=== PATIENT | male | born 1950 | race Two or more races ===

== ENCOUNTER → 2017-08-22 06:49 | Outpatient (CLI) | payer OTHER | END | disposition home or self-care (01) | LOC: LAB 06:49 | DX: C61 Malignant neoplasm of prostate (principal); E11.65 Type 2 diabetes mellitus with hyperglycemia; E03.8 Other specified hypothyroidism; N39.0 Urinary tract infection, site not specified; E78.2 Mixed hyperlipidemia ==

== ENCOUNTER → 2017-08-22 06:54 | Outpatient (CLI) | payer OTHER | END | disposition home or self-care (01) | LOC: RAD 06:54 | DX: J45.998 Other asthma (principal) ==

== ENCOUNTER → 2017-08-22 | Outpatient (CLI) | payer OTHER ==
[~2017-08-22] VITALS: Ht 152.4 cm; Wt 70.3 kg
== END | disposition home or self-care (01) ==
LOC: PPH VACUNA 08:05
DX: Z23 Encounter for immunization (principal)

== ENCOUNTER 2017-08-26 07:09 | Outpatient (CLI) | payer OTHER | END 2017-08-26 08:00 | disposition home or self-care (01) | LOC: NUCLEAR 07:09 | DX: I25.10 Atherosclerotic heart disease of native coronary artery without angina pectoris (principal) | CPT/HCPCS: 78452; 93017; A9500 ==

== ENCOUNTER → 2017-10-10 08:01 | Outpatient (CLI) | payer OTHER | END | disposition home or self-care (01) | LOC: LAB 08:01 | DX: N30.00 Acute cystitis without hematuria (principal) ==

== ENCOUNTER 2018-02-10 13:48 | Outpatient (CLI) | payer OTHER | END 2018-02-10 17:00 | disposition home or self-care (01) | LOC: SONOGRAMA 13:48 | DX: M25.511 Pain in right shoulder (principal) ==

== ENCOUNTER 2018-02-10 15:04 | Outpatient (CLI) | payer OTHER | END 2018-02-10 15:17 | disposition home or self-care (01) | LOC: LAB 15:04 | DX: C61 Malignant neoplasm of prostate (principal); E11.9 Type 2 diabetes mellitus without complications; N40.0 Benign prostatic hyperplasia without lower urinary tract symptoms ==

== ENCOUNTER → 2018-07-04 06:24 | Outpatient (CLI) | payer OTHER | END | disposition home or self-care (01) | LOC: LAB 06:24 → EDBD 06:24 | DX: M75.41 Impingement syndrome of right shoulder (principal); I10 Essential (primary) hypertension; C61 Malignant neoplasm of prostate; E11.9 Type 2 diabetes mellitus without complications; D68.8 Other specified coagulation defects ==

== ENCOUNTER 2018-07-20 06:35 | Day surgery (SDC) | payer OTHER | END 2018-07-20 10:30 | disposition home or self-care (01) | LOC: CIR.AMB 06:35 | DX: M75.41 Impingement syndrome of right shoulder (principal) ==

== ENCOUNTER → 2019-02-23 | Outpatient (CLI) | payer OTHER | END | disposition home or self-care (01) | LOC: LAB 08:10 | DX: C61 Malignant neoplasm of prostate (principal); E11.9 Type 2 diabetes mellitus without complications ==

== ENCOUNTER → 2019-09-10 06:40 | Outpatient (CLI) | payer OTHER | END | disposition home or self-care (01) | LOC: LAB 06:40 | DX: C61 Malignant neoplasm of prostate (principal); E11.9 Type 2 diabetes mellitus without complications ==

== ENCOUNTER 2020-02-29 07:11 | Outpatient (CLI) | payer OTHER | END 2020-02-29 10:45 | disposition home or self-care (01) | LOC: LAB 07:11 | PROVIDERS: ATTEND Urology | DX: C61 Malignant neoplasm of prostate (principal); E11.9 Type 2 diabetes mellitus without complications ==

== ENCOUNTER 2020-04-15 08:00 | Outpatient (CLI) | payer OTHER | END 2020-04-15 13:48 | disposition home or self-care (01) | LOC: PPH VACUNA 08:00 | DX: Z23 Encounter for immunization (principal) | CPT/HCPCS: 90688; G0008 ==

== ENCOUNTER → 2020-06-04 10:41 | Outpatient (CLI) | payer OTHER | END | disposition home or self-care (01) | LOC: LAB 10:41 | DX: Z20.828 Contact with and (suspected) exposure to other viral communicable diseases (principal); Z11.59 Encounter for screening for other viral diseases ==

== ENCOUNTER 2020-06-20 07:09 | Outpatient (CLI) | payer OTHER | END 2020-06-20 13:51 | disposition home or self-care (01) | LOC: LAB 07:09 | DX: Z03.818 Encounter for observation for suspected exposure to other biological agents ruled out (principal) ==

== ENCOUNTER 2020-08-07 07:02 | Outpatient (CLI) | payer OTHER | END 2020-08-07 16:18 | disposition home or self-care (01) | LOC: LAB 07:02 | PROVIDERS: ATTEND Urology | DX: E03.8 Other specified hypothyroidism (principal); C61 Malignant neoplasm of prostate; E55.9 Vitamin D deficiency, unspecified; R31.1 Benign essential microscopic hematuria; R73.09 Other abnormal glucose; E78.49 Other hyperlipidemia ==

== ENCOUNTER 2020-08-07 21:27 | Outpatient (CLI) | payer OTHER | END 2020-08-07 23:50 | disposition home or self-care (01) | LOC: PPH VACUNA 21:27 | PROVIDERS: ATTEND Emergency Medicine Pediatric Emergency Medicine | DX: Z23 Encounter for immunization (principal) ==

== ENCOUNTER → 2021-01-16 06:44 | Outpatient (CLI) | payer OTHER | END | disposition home or self-care (01) | LOC: LAB 06:44 | PROVIDERS: ATTEND Urology | DX: C61 Malignant neoplasm of prostate (principal); I11.9 Hypertensive heart disease without heart failure; E11.9 Type 2 diabetes mellitus without complications; U07.1 COVID-19 ==

== ENCOUNTER 2021-03-01 12:34 | Outpatient (CLI) | payer OTHER | END 2021-03-01 18:00 | disposition home or self-care (01) | LOC: LAB 12:34 | DX: Z03.818 Encounter for observation for suspected exposure to other biological agents ruled out (principal) ==

== ENCOUNTER 2021-04-27 08:00 | Outpatient (CLI) | payer OTHER | END 2021-04-27 08:30 | disposition home or self-care (01) | LOC: PPH VACUNA 08:00 | PROVIDERS: ATTEND Emergency Medicine Pediatric Emergency Medicine | DX: Z23 Encounter for immunization (principal) ==

== ENCOUNTER 2021-07-24 07:34 | Outpatient (CLI) | payer OTHER | END 2021-07-24 07:49 | disposition home or self-care (01) | LOC: LAB 07:34 | PROVIDERS: ATTEND Urology | DX: C61 Malignant neoplasm of prostate (principal); R31.1 Benign essential microscopic hematuria; E78.5 Hyperlipidemia, unspecified; E66.9 Obesity, unspecified; E55.9 Vitamin D deficiency, unspecified ==

== ENCOUNTER 2021-08-14 07:16 | Outpatient (CLI) | payer OTHER | END 2021-08-14 07:23 | disposition home or self-care (01) | LOC: MRI 07:16 | PROVIDERS: ATTEND Urology | DX: M25.562 Pain in left knee (principal); S83.252A Bucket-handle tear of lateral meniscus, current injury, left knee, initial encounter | CPT/HCPCS: 73718 ==

== ENCOUNTER 2021-08-14 08:59 | Outpatient (CLI) | payer OTHER | END 2021-08-14 09:10 | disposition home or self-care (01) | LOC: RAD 08:59 | PROVIDERS: ATTEND Radiology Diagnostic Radiology | DX: S82.092A Other fracture of left patella, initial encounter for closed fracture (principal) ==

== ENCOUNTER 2022-01-01 06:53 | Outpatient (CLI) | payer OTHER | END 2022-01-01 12:46 | disposition home or self-care (01) | LOC: LAB 06:53 | PROVIDERS: ATTEND Urology | DX: C61 Malignant neoplasm of prostate (principal); E11.9 Type 2 diabetes mellitus without complications ==

== ENCOUNTER → 2022-03-22 06:40 | Outpatient (CLI) | payer OTHER | END | disposition home or self-care (01) | LOC: LAB 06:40 | PROVIDERS: ATTEND Surgery | DX: Z01.818 Encounter for other preprocedural examination (principal); K40.90 Unilateral inguinal hernia, without obstruction or gangrene, not specified as recurrent; D68.8 Other specified coagulation defects; I10 Essential (primary) hypertension ==

== ENCOUNTER 2022-03-31 06:00 | Day surgery (SDC) | payer OTHER ==
[~2022-03-31 06:00] MED LIST: AMLODI PO; AMLODIP PO; OMEPRAZOLE MAGN20 MG PO; PEPCID AC20 MG PO; SINGULAIR10 MG PO
[2022-03-31] MEDS ORDERED: PERCOCET 5-3251 EACH PO (11:28)
[2022-03-31] MEDS ORDERED: POLY119PG PO (11:28)
[2022-03-31] MEDS ORDERED: NEURONTIN600 M1 PO (11:28)
== END 2022-03-31 13:10 | disposition home or self-care (01) ==
LOC: CIR.AMB 06:00
PROVIDERS: ATTEND Surgery
DX: K40.30 Unilateral inguinal hernia, with obstruction, without gangrene, not specified as recurrent (principal); I10 Essential (primary) hypertension; E11.9 Type 2 diabetes mellitus without complications
CPT/HCPCS: 49650; C1781

== ENCOUNTER 2022-04-21 09:53 | Outpatient (CLI) | payer OTHER ==
[~2022-04-21 09:53] MED LIST changes: +NEURONTIN600 M1 PO; +PERCOCET 5-3251 EACH PO; +POLY119PG PO
== END 2022-04-21 09:58 | disposition home or self-care (01) ==
LOC: PPH VACUNA 09:53
PROVIDERS: ATTEND Emergency Medicine Pediatric Emergency Medicine
DX: Z23 Encounter for immunization (principal)
CPT/HCPCS: 90686; G0008

== ENCOUNTER 2022-04-27 08:23 | Outpatient (CLI) | payer OTHER | END 2022-04-27 08:37 | disposition home or self-care (01) | LOC: LAB 08:23 | PROVIDERS: ATTEND Urology | DX: Z11.3 Encounter for screening for infections with a predominantly sexual mode of transmission (principal) ==

== ENCOUNTER 2022-08-20 08:31 | Outpatient (CLI) | payer OTHER | END 2022-08-20 09:06 | disposition home or self-care (01) | LOC: LAB 08:31 | PROVIDERS: ATTEND Radiology Diagnostic Radiology | DX: C61 Malignant neoplasm of prostate (principal); E11.9 Type 2 diabetes mellitus without complications ==

== ENCOUNTER → 2023-01-26 | Outpatient (CLI) | payer OTHER | END | disposition home or self-care (01) | LOC: RAD 08:35 | PROVIDERS: ATTEND Radiology Diagnostic Radiology | DX: R05.8 Other specified cough (principal); R09.89 Other specified symptoms and signs involving the circulatory and respiratory systems ==

== ENCOUNTER 2023-03-07 07:10 | Outpatient (CLI) | payer OTHER | END 2023-03-07 13:01 | disposition home or self-care (01) | LOC: LAB 07:10 | PROVIDERS: ATTEND Urology | DX: C61 Malignant neoplasm of prostate (principal); E11.9 Type 2 diabetes mellitus without complications ==

== ENCOUNTER 2023-03-31 | Outpatient (CLI) | payer OTHER | END 2023-03-31 00:15 | disposition home or self-care (01) | LOC: PPH VACUNA | PROVIDERS: ATTEND Emergency Medicine Pediatric Emergency Medicine | DX: Z23 Encounter for immunization (principal) ==

== ENCOUNTER 2023-04-20 06:58 | Outpatient (CLI) | payer OTHER | END 2023-04-20 07:25 | disposition home or self-care (01) | LOC: LAB 06:58 | PROVIDERS: ATTEND Internal Medicine Gastroenterology | DX: J20.9 Acute bronchitis, unspecified (principal); R05.9 Cough, unspecified; R06.02 Shortness of breath ==

== ENCOUNTER 2023-07-22 06:36 | Outpatient (CLI) | payer OTHER ==
[2023-07-22 07:27] LABS: HEMATOCRIT 38.6 % (39.0-48.0); HEMOGLOBIN 13.3 g/dL (13-16.00); MEAN CELL VOLUME 90.6 fL (80.0-100.00); MEAN CORPUSCULAR HEMOGLOBIN 31.1 pg (27.00-32.0); MEAN CORPUSCULAR HGB CONC 34.3 g/dl (32.0-36.0); PLATELET COUNT 222 K/uL (150-450); RED BLOOD COUNT 4.26 M/uL (4.00-6.00); RED CELL DISTRIBUTION WIDTH 13.8 % (11.5-14.5)
[2023-07-22 07:55] LABS: ALBUMIN 3.8 gm/dL (3.4-5.0); ALKALINE PHOSPHATASE 97 U/L (50-136); ALT/SGPT 55 U/L (12-78); ANION GAP 7 (10.0-20.0); AST/SGOT 24 U/L (15-37); BILIRUBIN TOTAL 0.46 mg/dL (0.3-1.2); BLOOD UREA NITROGEN 18 mg/dL (7-18); BUN CREA RATIO 19 (7.0-25.0); CALCIUM 9.1 mg/dL (8.5-10.1); CARBON DIOXIDE 29 mEq/L (21-32); CHLORIDE 107 mmol/L (98-107); CHOL HDL RATIO 4.3 (0-5.0); CHOLESTEROL 177 mg/dL (0-200); CREATININE SERUM 0.94 mg/dL (0.70-1.30); FREE TRIODOTIRONINE 2.62 pg/ml (2.18-3.98); GFR 78.67; GLOBULINA 3.4 G/DL (2.4-3.5); GLUCOSE FASTING 121 mg/dL (65-100); HDL 41 mg/dl (40-60); LDL 113 mg/dl (0-130); OSMOLALITY SERUM 281 MOSM/KG (275-295); POTASSIUM 4.15 mEq/L (3.5-5.1); SODIUM 139 mmol/L (136-145); T4 FREE 1.03 NG/ML (0.76-1.46); TOTAL PROTEIN 7.2 gm/dL (6.4-8.2); TRIGLYCERIDES 113 mg/dL (0-150); VLDL 22 (0-39)
[2023-07-22 07:56] LABS: PROSTATIC SPECIFIC ANTIGEN < 0.010 NG/ML (0.010-4.00)
== END 2023-07-22 06:38 | disposition home or self-care (01) ==
LOC: LAB 06:36
PROVIDERS: ATTEND Internal Medicine
DX: C61 Malignant neoplasm of prostate (principal); I11.9 Hypertensive heart disease without heart failure; E78.2 Mixed hyperlipidemia; E03.9 Hypothyroidism, unspecified; E11.9 Type 2 diabetes mellitus without complications

== ENCOUNTER → 2023-08-26 06:35 | Outpatient (CLI) | payer OTHER ==
[2023-08-26 07:07] LABS: HEMATOCRIT 40.8 % (39.0-48.0); HEMOGLOBIN 13.9 g/dL (13-16.00); MEAN CELL VOLUME 92.2 fL (80.0-100.00); MEAN CORPUSCULAR HEMOGLOBIN 31.5 pg (27.00-32.0); MEAN CORPUSCULAR HGB CONC 34.1 g/dl (32.0-36.0); PLATELET COUNT 242 K/uL (150-450); RED BLOOD COUNT 4.42 M/uL (4.00-6.00); RED CELL DISTRIBUTION WIDTH 14.5 % (11.5-14.5)
[2023-08-26 07:18] LABS: PH,URINE 5.5 (5.0-8.0); URINE APPEARANCE Clear; URINE BILIRRUBIN Large (NEGATIVE); URINE BLOOD Small; URINE COLOR Dark Yellow; URINE GLUCOSE Negative (NEGATIVE); URINE LEUKOCYTE Trace; URINE NITRATE Negative; URINE PROTEIN 30 (NEGATIVE)
[2023-08-26 07:19] LABS: URINE BACTERIA 8.8 uL (0.0-1933); URINE EPITHELIAL CELLS 6.9 uL (0.0-38.8); URINE RBC 32.3 uL (0.0-20.8); URINE WBC 2.4 uL (0.0-23.2)
[2023-08-26 07:40] LABS: ALBUMIN 3.8 gm/dL (3.4-5.0); BILIRUBIN TOTAL 5.39 mg/dL (0.3-1.2); BILIRUBIN,CONJUGATED 4.65 mg/dL (0.0-0.2); BILIRUBIN,UNCONJUGATED 0.74 mg/dL (0.0-0.6); CALCIUM 9.4 mg/dL (8.5-10.1); CREATININE SERUM 0.95 mg/dL (0.70-1.30); GFR 77.71; GLOBULINA 3.3 G/DL (2.4-3.5); POTASSIUM 4.37 mEq/L (3.5-5.1); TOTAL PROTEIN 7.1 gm/dL (6.4-8.2); TSH 1.43 uIU/mL (0.358-3.74)
== END | disposition home or self-care (01) ==
LOC: LAB 06:35
PROVIDERS: ATTEND Specialist
DX: E03.9 Hypothyroidism, unspecified (principal); E11.21 Type 2 diabetes mellitus with diabetic nephropathy; N39.9 Disorder of urinary system, unspecified; E11.65 Type 2 diabetes mellitus with hyperglycemia; D64.9 Anemia, unspecified; K57.81 Diverticulitis of intestine, part unspecified, with perforation and abscess with bleeding; N25.81 Secondary hyperparathyroidism of renal origin

== ENCOUNTER 2023-08-28 10:00 | Inpatient (IN) | payer OTHER ==
[~2023-08-28] VITALS: Ht 170.2 cm; Wt 65.8 kg
[2023-08-28 12:49] LABS: HEMATOCRIT 40.5 % (39.0-48.0); HEMOGLOBIN 13.8 g/dL (13-16.00); MEAN CELL VOLUME 92.1 fL (80.0-100.00); MEAN CORPUSCULAR HEMOGLOBIN 31.5 pg (27.00-32.0); MEAN CORPUSCULAR HGB CONC 34.2 g/dl (32.0-36.0); PLATELET COUNT 277 K/uL (150-450); RED BLOOD COUNT 4.39 M/uL (4.00-6.00); RED CELL DISTRIBUTION WIDTH 15.1 % (11.5-14.5)
[2023-08-28 13:11] LABS: INR 0.95; PARTIAL THROMBOPLASTIN TIME 27.7 SECONDS (22.0-34.0)
[2023-08-30 06:52] LABS: ALBUMIN 2.8 gm/dL (3.4-5.0); BILIRUBIN TOTAL 4.38 mg/dL (0.3-1.2); BILIRUBIN,CONJUGATED 3.49 mg/dL (0.0-0.2); BILIRUBIN,UNCONJUGATED 0.89 mg/dL (0.0-0.6); TOTAL PROTEIN 5.4 gm/dL (6.4-8.2)
[2023-09-01 16:07] LABS: igg 987 mg/dL (603-1613); igg 1 452 mg/dL (248-810); igg 2 397 mg/dL (130-555); igg 3 41 mg/dL (15-102); igg 4 27 mg/dL (2-96)
== END 2023-08-30 10:30 | disposition home or self-care (01) | DRG 446 ==
LOC: SEC-K 10:00 → SURG 10:00 → SURH 10:11 → SURG 10:15
PROVIDERS: Internal Medicine Gastroenterology; ADMIT Specialist; ATTEND Specialist
PROC: 0FJD8ZZ Inspection of Pancreatic Duct, Via Natural or Artificial Opening Endoscopic (ICD-10-PCS; principal; 2023-08-29 10:30)
DX: K83.1 Obstruction of bile duct (principal); C61 Malignant neoplasm of prostate; I10 Essential (primary) hypertension; E11.9 Type 2 diabetes mellitus without complications; Z79.4 Long term (current) use of insulin
CPT/HCPCS: 74181

== ENCOUNTER 2023-09-16 07:17 | Outpatient (CLI) | payer OTHER ==
[2023-09-16 07:49] LABS: HEMATOCRIT 32.1 % (39.0-48.0); MEAN CELL VOLUME 91.6 fL (80.0-100.00); MEAN CORPUSCULAR HEMOGLOBIN 31.4 pg (27.00-32.0); MEAN CORPUSCULAR HGB CONC 34.3 g/dl (32.0-36.0); PLATELET COUNT 482 K/uL (150-450); RED CELL DISTRIBUTION WIDTH 13.4 % (11.5-14.5)
[2023-09-16 08:26] LABS: BILIRUBIN TOTAL 0.81 mg/dL (0.3-1.2); CALCIUM 9.6 mg/dL (8.5-10.1); CREATININE SERUM 0.92 mg/dL (0.70-1.30); GFR 80.64; GLOBULINA 3.8 G/DL (2.4-3.5); POTASSIUM 5.03 mEq/L (3.5-5.1); TOTAL PROTEIN 6.8 gm/dL (6.4-8.2)
== END 2023-09-16 09:22 | disposition home or self-care (01) ==
LOC: LAB 07:17
PROVIDERS: ATTEND Urology
DX: C25.3 Malignant neoplasm of pancreatic duct (principal); R31.1 Benign essential microscopic hematuria

== ENCOUNTER 2023-09-16 09:06 | Outpatient (CLI) | payer OTHER | END 2023-09-16 09:07 | disposition home or self-care (01) | LOC: NUCLEAR 09:06 | PROVIDERS: ATTEND Urology | DX: C25.3 Malignant neoplasm of pancreatic duct (principal) | CPT/HCPCS: 78816; A9552 ==

== ENCOUNTER 2023-09-30 10:58 | Outpatient (CLI) | payer OTHER | END 2023-09-30 12:58 | disposition home or self-care (01) | LOC: LAB 10:58 | PROVIDERS: ATTEND Specialist | DX: L02.91 Cutaneous abscess, unspecified (principal) ==

== ENCOUNTER 2023-10-10 10:23 | Outpatient (CLI) | payer OTHER | END 2023-10-10 13:03 | disposition home or self-care (01) | LOC: LAB 10:23 | PROVIDERS: ATTEND Specialist | DX: L02.91 Cutaneous abscess, unspecified (principal) ==

== ENCOUNTER 2023-10-21 06:33 | Outpatient (CLI) | payer OTHER ==
[2023-10-21 08:06] LABS: % SATURACION 16.5 % (20-50); ALBUMIN 3.2 gm/dL (3.4-5.0); BILIRUBIN TOTAL 0.45 mg/dL (0.3-1.2); CREATININE SERUM 0.78 mg/dL (0.70-1.30); GFR 97.3; POTASSIUM 4.87 mEq/L (3.5-5.1); TOTAL PROTEIN 6.2 gm/dL (6.4-8.2)
[2023-10-21 08:10] LABS: HEMATOCRIT 31.9 % (39.0-48.0); MEAN CELL VOLUME 91.3 fL (80.0-100.00); MEAN CORPUSCULAR HEMOGLOBIN 31.6 pg (27.00-32.0); MEAN CORPUSCULAR HGB CONC 34.6 g/dl (32.0-36.0); PLATELET COUNT 251 K/uL (150-450); RED BLOOD COUNT 3.49 M/uL (4.00-6.00); RED CELL DISTRIBUTION WIDTH 13.9 % (11.5-14.5)
[2023-10-21 08:13] LABS: INR 1.05; PARTIAL THROMBOPLASTIN TIME 27.6 SECONDS (22.0-34.0)
== END 2023-10-21 06:34 | disposition home or self-care (01) ==
LOC: LAB 06:33
PROVIDERS: ATTEND Internal Medicine Hematology & Oncology
DX: C25.0 Malignant neoplasm of head of pancreas (principal); I11.9 Hypertensive heart disease without heart failure; D50.0 Iron deficiency anemia secondary to blood loss (chronic); R97.8 Other abnormal tumor markers; D68.8 Other specified coagulation defects

== ENCOUNTER → 2023-11-11 08:04 | Outpatient (CLI) | payer OTHER ==
[2023-11-11 09:10] LABS: HEMATOCRIT 30.3 % (39.0-48.0); HEMOGLOBIN 10.1 g/dL (13-16.00); MEAN CELL VOLUME 88.4 fL (80.0-100.00); MEAN CORPUSCULAR HEMOGLOBIN 29.5 pg (27.00-32.0); MEAN CORPUSCULAR HGB CONC 33.3 g/dl (32.0-36.0); PLATELET COUNT 388 K/uL (150-450); RED BLOOD COUNT 3.42 M/uL (4.00-6.00); RED CELL DISTRIBUTION WIDTH 14.3 % (11.5-14.5)
== END | disposition home or self-care (01) ==
LOC: LAB 08:04
PROVIDERS: ATTEND Internal Medicine Hematology & Oncology
DX: C25.0 Malignant neoplasm of head of pancreas (principal); E11.8 Type 2 diabetes mellitus with unspecified complications; E11.9 Type 2 diabetes mellitus without complications

== ENCOUNTER 2024-02-10 06:51 | Outpatient (CLI) | payer OTHER ==
[2024-02-10 07:49] LABS: HEMATOCRIT 30.8 % (39.0-48.0); HEMOGLOBIN 10.5 g/dL (13-16.00); MEAN CELL VOLUME 92.7 fL (80.0-100.00); MEAN CORPUSCULAR HEMOGLOBIN 31.8 pg (27.00-32.0); MEAN CORPUSCULAR HGB CONC 34.3 g/dl (32.0-36.0); PLATELET COUNT 220 K/uL (150-450); RED BLOOD COUNT 3.32 M/uL (4.00-6.00)
[2024-02-10 08:42] LABS: ALBUMIN 3.4 gm/dL (3.4-5.0); BILIRUBIN TOTAL 0.37 mg/dL (0.3-1.2); CALCIUM 8.9 mg/dL (8.5-10.1); CREATININE SERUM 0.74 mg/dL (0.70-1.30); GFR 103.39; GLOBULINA 3.3 G/DL (2.4-3.5); POTASSIUM 3.95 mEq/L (3.5-5.1); TOTAL PROTEIN 6.7 gm/dL (6.4-8.2)
[2024-02-11 11:12] LABS: INSULIN LEVELS 5.3 uIU/mL (2.6-24.9)
== END 2024-02-10 06:59 | disposition home or self-care (01) ==
LOC: LAB 06:51
PROVIDERS: ATTEND Internal Medicine Endocrinology, Diabetes & Metabolism
DX: E10.10 Type 1 diabetes mellitus with ketoacidosis without coma (principal); R74.01 Elevation of levels of liver transaminase levels

== ENCOUNTER 2024-03-23 15:00 | Outpatient (CLI) | payer OTHER ==
[2024-03-23 15:27] LABS: HEMATOCRIT 33.8 % (39.0-48.0); HEMOGLOBIN 11.6 g/dL (13-16.00); MEAN CORPUSCULAR HEMOGLOBIN 32.2 pg (27.00-32.0); MEAN CORPUSCULAR HGB CONC 34.3 g/dl (32.0-36.0); PLATELET COUNT 251 K/uL (150-450); RED BLOOD COUNT 3.59 M/uL (4.00-6.00); RED CELL DISTRIBUTION WIDTH 15.7 % (11.5-14.5)
== END 2024-03-23 15:02 | disposition home or self-care (01) ==
LOC: LAB 15:00
PROVIDERS: ATTEND Urology
DX: C25.9 Malignant neoplasm of pancreas, unspecified (principal)

== ENCOUNTER → 2024-04-07 07:41 | Outpatient (CLI) | payer OTHER ==
[2024-04-07 09:29] LABS: HEMATOCRIT 31.9 % (39.0-48.0); MEAN CELL VOLUME 93.4 fL (80.0-100.00); MEAN CORPUSCULAR HEMOGLOBIN 32.3 pg (27.00-32.0); MEAN CORPUSCULAR HGB CONC 34.6 g/dl (32.0-36.0); PLATELET COUNT 190 K/uL (150-450); RED BLOOD COUNT 3.41 M/uL (4.00-6.00); RED CELL DISTRIBUTION WIDTH 15.8 % (11.5-14.5)
== END | disposition home or self-care (01) ==
LOC: LAB 07:41
PROVIDERS: ATTEND Internal Medicine Hematology & Oncology
DX: C25.0 Malignant neoplasm of head of pancreas (principal)

== ENCOUNTER 2024-04-20 06:31 | Outpatient (CLI) | payer OTHER ==
[2024-04-20 07:37] LABS: URINE APPEARANCE Clear; URINE BILIRRUBIN Negative (NEGATIVE); URINE BLOOD Negative; URINE COLOR Yellow; URINE GLUCOSE Negative (NEGATIVE); URINE KETONE Negative (NEGATIVE); URINE LEUKOCYTE Negative; URINE NITRATE Negative; URINE PROTEIN Trace (NEGATIVE); URINE UROBILINOGEN 0.2 E.U./dl
[2024-04-20 07:38] LABS: URINE BACTERIA 11.3 uL (0.0-1933); URINE EPITHELIAL CELLS 2.6 uL (0.0-38.8); URINE WBC 3.5 uL (0.0-23.2)
[2024-04-20 07:39] LABS: URINE CAST 0.15 uL (0.0-1.40)
[2024-04-20 07:40] LABS: HEMATOCRIT 33.1 % (39.0-48.0); HEMOGLOBIN 11.3 g/dL (13-16.00); MEAN CELL VOLUME 94.9 fL (80.0-100.00); MEAN CORPUSCULAR HEMOGLOBIN 32.4 pg (27.00-32.0); MEAN CORPUSCULAR HGB CONC 34.1 g/dl (32.0-36.0); PLATELET COUNT 195 K/uL (150-450); RED BLOOD COUNT 3.48 M/uL (4.00-6.00); RED CELL DISTRIBUTION WIDTH 15.4 % (11.5-14.5)
[2024-04-20 08:31] LABS: ALBUMIN 3.4 gm/dL (3.4-5.0); BILIRUBIN TOTAL 0.28 mg/dL (0.3-1.2); CALCIUM 8.7 mg/dL (8.5-10.1); CHOL HDL RATIO 3.5 (0-5.0); CREATININE SERUM 0.82 mg/dL (0.70-1.30); FERRITIN 235.8 NG/ML (26-388); GFR 91.84; GLOBULINA 3.3 G/DL (2.4-3.5); MAGNESIUM 2.1 mg/dL (1.8-2.4); PHOSPHOROUS 3.5 mg/dL (2.5-4.9); POTASSIUM 4.34 mEq/L (3.5-5.1); TOTAL PROTEIN 6.7 gm/dL (6.4-8.2)
[2024-04-21 09:07] LABS: CA 19-9 73 U/mL (0-35); FRUCTOSAMINE 278 umol/L (0-285)
== END 2024-04-20 06:32 | disposition home or self-care (01) ==
LOC: LAB 06:31
PROVIDERS: ATTEND Internal Medicine Endocrinology, Diabetes & Metabolism
DX: D50.1 Sideropenic dysphagia (principal); E53.1 Pyridoxine deficiency; I11.9 Hypertensive heart disease without heart failure; N39.0 Urinary tract infection, site not specified; E10.10 Type 1 diabetes mellitus with ketoacidosis without coma; D53.9 Nutritional anemia, unspecified; E55.9 Vitamin D deficiency, unspecified; E61.3 Manganese deficiency; E61.9 Deficiency of nutrient element, unspecified; E78.2 Mixed hyperlipidemia; C25.0 Malignant neoplasm of head of pancreas; R74.01 Elevation of levels of liver transaminase levels; R97.8 Other abnormal tumor markers

== ENCOUNTER 2024-04-23 06:19 | Outpatient (CLI) | payer OTHER | END 2024-04-23 15:23 | disposition home or self-care (01) | LOC: TOM 06:19 | PROVIDERS: ATTEND Internal Medicine Hematology & Oncology | DX: C25.0 Malignant neoplasm of head of pancreas (principal); C77.2 Secondary and unspecified malignant neoplasm of intra-abdominal lymph nodes | CPT/HCPCS: 71270; 74178; Q9965 ==

== ENCOUNTER 2024-05-31 06:14 | Outpatient (CLI) | payer OTHER ==
[2024-05-31 07:07] LABS: URINE APPEARANCE Clear; URINE BILIRRUBIN Negative (NEGATIVE); URINE BLOOD Negative; URINE COLOR Yellow; URINE GLUCOSE Negative (NEGATIVE); URINE KETONE Negative (NEGATIVE); URINE LEUKOCYTE Trace; URINE NITRATE Negative; URINE PROTEIN Negative (NEGATIVE)
[2024-05-31 07:11] LABS: URINE RBC 10.8 uL (0.0-20.8); URINE WBC 3.2 uL (0.0-23.2)
[2024-05-31 07:14] LABS: HEMATOCRIT 33.2 % (39.0-48.0); HEMOGLOBIN 11.5 g/dL (13-16.00); MEAN CELL VOLUME 93.6 fL (80.0-100.00); MEAN CORPUSCULAR HEMOGLOBIN 32.3 pg (27.00-32.0); MEAN CORPUSCULAR HGB CONC 34.5 g/dl (32.0-36.0); PLATELET COUNT 232 K/uL (150-450); RED BLOOD COUNT 3.55 M/uL (4.00-6.00); RED CELL DISTRIBUTION WIDTH 14.3 % (11.5-14.5)
[2024-05-31 07:44] LABS: INR 0.97; PARTIAL THROMBOPLASTIN TIME 26.8 SECONDS (22.0-34.0); PROTHROMBIN TIME 10.6 SECONDS (9.0-11.5)
[2024-05-31 07:58] LABS: ALBUMIN 3.4 gm/dL (3.4-5.0); ALKALINE PHOSPHATASE 124 U/L (50-136); ALT/SGPT 27 U/L (12-78); ANION GAP 9 (10.0-20.0); AST/SGOT 27 U/L (15-37); BILIRUBIN TOTAL 0.39 mg/dL (0.3-1.2); BILIRUBIN,CONJUGATED < 0.10 mg/dL (0.0-0.2); BILIRUBIN,UNCONJUGATED 0.29 mg/dL (0.0-0.6); BLOOD UREA NITROGEN 14 mg/dL (7-18); BUN CREA RATIO 16 (7.0-25.0); CALCIUM 9.2 mg/dL (8.5-10.1); CARBON DIOXIDE 28 mEq/L (21-32); CHLORIDE 109 mmol/L (98-107); CREATININE SERUM 0.87 mg/dL (0.70-1.30); GFR 85.78; GLUCOSE FASTING 127 mg/dL (65-100); OSMOLALITY SERUM 283 MOSM/KG (275-295); POTASSIUM 4.56 mEq/L (3.5-5.1); SODIUM 141 mmol/L (136-145); TOTAL PROTEIN 6.6 gm/dL (6.4-8.2)
[2024-05-31 12:38] LABS: PROSTATIC SPECIFIC ANTIGEN < 0.010 NG/ML (0.010-4.00)
== END 2024-05-31 08:11 | disposition home or self-care (01) ==
LOC: LAB 06:14
DX: K43.2 Incisional hernia without obstruction or gangrene (principal); Z01.818 Encounter for other preprocedural examination

== ENCOUNTER 2024-06-13 06:10 | Inpatient (IN) | payer OTHER ==
[~2024-06-13] VITALS: Ht 170.2 cm; Wt 62.6 kg
[~2024-06-13 06:10] MED LIST changes: +HUMALOG100 UNIT/2 SQ; +LANTUS SOL100 UNIT/1 SQ
[2024-06-13] MEDS ORDERED: BUPIVACAINE HCL 30 ML VIAL IJ ONE (08:45)
[2024-06-13] MEDS ORDERED: BUPIVACAINE LIPOSOME/PF 266 MG/20 ML VIAL IJ ONE (08:45)
[2024-06-13] MEDS ORDERED: ERTAPENEM SODIUM 1,000 MG in 0.9 % SODIUM CHLORIDE 50 ML IV ONE (08:45)
[2024-06-13] MEDS ORDERED: ENOXAPARIN SODIUM 40 MG/0.4 ML SYRINGE SUBCUTANEO ONE (08:45)
[2024-06-13] MEDS ORDERED: THROMBIN,HU/FIBRINOGEN/CALCIUM 4 ML SYRINGE TOP ONE (09:45)
[2024-06-13] MEDS ORDERED: SUGAMMADEX SODIUM 200 MG/2 ML VIAL IV ONE (10:45)
[2024-06-13] MEDS ORDERED: MORPHINE SULFATE 4 MG/ML VIAL IV PRN (12:00)
[2024-06-13] MEDS ORDERED: 0.9 % SODIUM CHLORIDE 1,000 ML IV SCH (12:15)
[2024-06-13] MEDS ORDERED: ENALAPRILAT DIHYDRATE 1.25 MG/ML VIAL IV PRN (12:15)
[2024-06-13] MEDS ORDERED: DEXTROSE 50 % IN WATER 0.5 G/ML DISP.SYRIN IV PRN (12:15)
[2024-06-13] MEDS ORDERED: INSULIN LISPRO 1,000 UNIT/10 ML UNITS SUBCUTANEO PRN (12:15)
[2024-06-13] MEDS ORDERED: ONDANSETRON HCL 2 MG/ML VIAL IV SCH (13:00)
[2024-06-13] MEDS ORDERED: GABAPENTIN 300 MG CAPSULE PO SCH (13:00)
[2024-06-13 15:00] VITALS: BP 130/75
[2024-06-13 15:56] VITALS: BP 130/75; O2SAT 96
[2024-06-13] MEDS ORDERED: PIPERACILLIN/TAZOBACTAM SODIUM 3.375 GM VIAL IV SCH (17:00)
[2024-06-13] MEDS ORDERED: CELECOXIB 200 MG CAPSULE PO SCH (17:00)
[2024-06-13] MEDS ORDERED: FAMOtidine 20 MG TABLET PO SCH (21:00)
[2024-06-13] MEDS ORDERED: INSULIN GLARGINE,HUM.REC.ANLOG 1,000 UNITS/10 ML UNITS SUBCUTANEO SCH (21:00)
[2024-06-14] VITALS: BP 106/63; O2SAT 100
[2024-06-14 06:14] LABS: HEMATOCRIT 29.3 % (39.0-48.0); HEMOGLOBIN 10.2 g/dL (13-16.00); MEAN CELL VOLUME 93.1 fL (80.0-100.00); MEAN CORPUSCULAR HEMOGLOBIN 32.4 pg (27.00-32.0); MEAN CORPUSCULAR HGB CONC 34.8 g/dl (32.0-36.0); PLATELET COUNT 193 K/uL (150-450); RED BLOOD COUNT 3.15 M/uL (4.00-6.00); RED CELL DISTRIBUTION WIDTH 14.1 % (11.5-14.5)
[2024-06-14 06:33] LABS: CALCIUM 8.2 mg/dL (8.5-10.1); CREATININE SERUM 0.81 mg/dL (0.70-1.30); GFR 93.15; POTASSIUM 4.53 mEq/L (3.5-5.1)
[2024-06-14] MEDS ORDERED: POLYETHYLENE GLYCOL 3350 17 GM BLIST.PACK PO SCH (09:00)
[2024-06-14] MEDS ORDERED: ENOXAPARIN SODIUM 40 MG/0.4 ML SYRINGE SUBCUTANEO SCH (09:00)
[2024-06-14] MEDS ORDERED: AMLODIPINE BESYLATE 5 MG TABLET PO SCH (09:00)
[2024-06-14 09:04] VITALS: BP 151/83; O2SAT 96
[2024-06-14 09:06] VITALS: BP 111/67; O2SAT 96
[2024-06-14 16:00] VITALS: BP 134/73; O2SAT 96
[2024-06-14] MEDS ORDERED: SOD FERRIC GLUC COMPLX/SUCROSE 62.5 MG in 0.9 % SODIUM CHLORIDE 50 ML IV SCH (17:00)
[2024-06-15] VITALS: BP 114/69; O2SAT 96
[2024-06-15 06:44] LABS: HEMATOCRIT 27.3 % (39.0-48.0); HEMOGLOBIN 9.4 g/dL (13-16.00); MEAN CELL VOLUME 93.1 fL (80.0-100.00); MEAN CORPUSCULAR HEMOGLOBIN 32.2 pg (27.00-32.0); MEAN CORPUSCULAR HGB CONC 34.6 g/dl (32.0-36.0); PLATELET COUNT 219 K/uL (150-450); RED BLOOD COUNT 2.93 M/uL (4.00-6.00); RED CELL DISTRIBUTION WIDTH 14.2 % (11.5-14.5)
[2024-06-15 09:26] VITALS: BP 115/65; O2SAT 96
[2024-06-15] MEDS ORDERED: SOD FERRIC GLUC COMPLX/SUCROSE 62.5 MG in 0.9 % SODIUM CHLORIDE 50 ML IV SCH (13:44)
[2024-06-15 16:00] VITALS: BP 126/80; O2SAT 95
[2024-06-15 22:25] LABS: HEMATOCRIT 27.2 % (39.0-48.0); HEMOGLOBIN 9.3 g/dL (13-16.00); MEAN CELL VOLUME 94.2 fL (80.0-100.00); MEAN CORPUSCULAR HEMOGLOBIN 32.3 pg (27.00-32.0); MEAN CORPUSCULAR HGB CONC 34.3 g/dl (32.0-36.0); PLATELET COUNT 254 K/uL (150-450); RED BLOOD COUNT 2.89 M/uL (4.00-6.00)
[2024-06-16 00:07] VITALS: BP 106/65; O2SAT 95
[2024-06-16 08:22] VITALS: BP 123/80; O2SAT 94
== END 2024-06-16 10:39 | disposition home or self-care (01) | DRG 337 ==
LOC: CIR.AMB 06:10 → O/R 13:52 → SURG 14:45
PROVIDERS: Specialist; ADMIT Surgery; ATTEND Surgery
PROC: 0WUF4JZ Supplement Abdominal Wall with Synthetic Substitute, Percutaneous Endoscopic Approach (ICD-10-PCS; 2024-06-13)
PROC: 0KP Muscles, Removal (ICD-10-PCS; 2024-06-13)
PROC: 0JX80ZZ Transfer Abdomen Subcutaneous Tissue and Fascia, Open Approach (ICD-10-PCS; 2024-06-13)
PROC: 0JPV3WZ Removal of Totally Implantable Vascular Access Device from Upper Extremity Subcutaneous Tissue and Fascia, Percutaneous Approach (ICD-10-PCS; 2024-06-13)
PROC: 02PY33Z Removal of Infusion Device from Great Vessel, Percutaneous Approach (ICD-10-PCS; 2024-06-13)
PROC: 0DN84ZZ Release Small Intestine, Percutaneous Endoscopic Approach (ICD-10-PCS; principal; 2024-06-13 07:00)
DX: K43.2 Incisional hernia without obstruction or gangrene (principal); I10 Essential (primary) hypertension; E11.9 Type 2 diabetes mellitus without complications; Z79.4 Long term (current) use of insulin

== ENCOUNTER 2024-08-16 06:47 | Outpatient (CLI) | payer OTHER ==
[2024-08-16 07:28] LABS: HEMATOCRIT 37.2 % (39.0-48.0); HEMOGLOBIN 12.6 g/dL (13-16.00); MEAN CELL VOLUME 87.9 fL (80.0-100.00); MEAN CORPUSCULAR HEMOGLOBIN 29.7 pg (27.00-32.0); MEAN CORPUSCULAR HGB CONC 33.8 g/dl (32.0-36.0); PLATELET COUNT 318 K/uL (150-450); RED BLOOD COUNT 4.24 M/uL (4.00-6.00)
[2024-08-16 07:41] LABS: PH,URINE 5.5 (5.0-8.0); URINE APPEARANCE Clear; URINE BILIRRUBIN Negative (NEGATIVE); URINE BLOOD Small; URINE COLOR Yellow; URINE GLUCOSE Negative (NEGATIVE); URINE KETONE 15 (NEGATIVE); URINE LEUKOCYTE Negative; URINE NITRATE Negative; URINE PROTEIN Negative (NEGATIVE); URINE UROBILINOGEN 0.2 E.U./dl
[2024-08-16 07:43] LABS: URINE BACTERIA 6.1 uL (0.0-1933); URINE CAST 0.58 uL (0.0-1.40); URINE EPITHELIAL CELLS 1.5 uL (0.0-38.8); URINE RBC 4.7 uL (0.0-20.8); URINE WBC 2.9 uL (0.0-23.2)
[2024-08-16 08:17] LABS: ALBUMIN 3.4 gm/dL (3.4-5.0); BILIRUBIN TOTAL 0.49 mg/dL (0.3-1.2); CALCIUM 9.2 mg/dL (8.5-10.1); CREATININE SERUM 0.84 mg/dL (0.70-1.30); GFR 89.32; GLOBULINA 3.9 G/DL (2.4-3.5); MAGNESIUM 2.1 mg/dL (1.8-2.4); PHOSPHOROUS 3.7 mg/dL (2.5-4.9); POTASSIUM 4.66 mEq/L (3.5-5.1); TOTAL PROTEIN 7.3 gm/dL (6.4-8.2); TSH 2.13 uIU/mL (0.358-3.74)
[2024-08-16 10:07] LABS: VITAMIN D3 25 HYDROXY 37.79 ng/ml (30-120)
[2024-08-18 06:04] LABS: CA 19-9 777 U/mL (0-35); FRUCTOSAMINE 237 umol/L (0-285)
== END 2024-08-16 06:59 | disposition home or self-care (01) ==
LOC: LAB 06:47
PROVIDERS: ATTEND Internal Medicine Endocrinology, Diabetes & Metabolism
DX: I11.0 Hypertensive heart disease with heart failure (principal); E55.9 Vitamin D deficiency, unspecified; E04.9 Nontoxic goiter, unspecified; E11.9 Type 2 diabetes mellitus without complications; N36.2 Urethral caruncle; E61.3 Manganese deficiency; E61.9 Deficiency of nutrient element, unspecified; N30.00 Acute cystitis without hematuria; D53.9 Nutritional anemia, unspecified; C25.0 Malignant neoplasm of head of pancreas; R97.0 Elevated carcinoembryonic antigen [CEA]; R97.8 Other abnormal tumor markers; E21.3 Hyperparathyroidism, unspecified

== ENCOUNTER 2024-08-16 07:53 | Outpatient (CLI) | payer OTHER | END 2024-08-16 07:54 | disposition home or self-care (01) | LOC: NUCLEAR 07:53 | PROVIDERS: ATTEND Internal Medicine Hematology & Oncology | DX: C25.0 Malignant neoplasm of head of pancreas (principal); C77.2 Secondary and unspecified malignant neoplasm of intra-abdominal lymph nodes | CPT/HCPCS: 78816; A9552 ==

== ENCOUNTER 2024-08-23 07:41 | Outpatient (CLI) | payer OTHER | END 2024-08-23 07:45 | disposition home or self-care (01) | LOC: TOM 07:41 | PROVIDERS: ATTEND Urology | DX: C25.0 Malignant neoplasm of head of pancreas (principal); J91.0 Malignant pleural effusion ==

== ENCOUNTER 2024-08-31 06:53 | Outpatient (CLI) | payer OTHER ==
[2024-08-31 07:28] LABS: HEMATOCRIT 33.6 % (39.0-48.0); HEMOGLOBIN 11.6 g/dL (13-16.00); MEAN CELL VOLUME 86.8 fL (80.0-100.00); MEAN CORPUSCULAR HGB CONC 34.5 g/dl (32.0-36.0); PLATELET COUNT 385 K/uL (150-450); RED BLOOD COUNT 3.87 M/uL (4.00-6.00)
[2024-08-31 08:26] LABS: ALBUMIN 2.8 gm/dL (3.4-5.0); BILIRUBIN TOTAL 0.33 mg/dL (0.3-1.2); CALCIUM 9.3 mg/dL (8.5-10.1); CREATININE SERUM 0.81 mg/dL (0.70-1.30); GFR 93.15; GLOBULINA 3.8 G/DL (2.4-3.5); POTASSIUM 4.8 mEq/L (3.5-5.1); TOTAL PROTEIN 6.6 gm/dL (6.4-8.2)
== END 2024-08-31 06:59 | disposition home or self-care (01) ==
LOC: LAB 06:53
DX: C25.0 Malignant neoplasm of head of pancreas (principal)

== ENCOUNTER 2024-10-05 07:08 | Outpatient (CLI) | payer OTHER ==
[2024-10-05 07:16] LABS: HEMATOCRIT 31.8 % (39.0-48.0); HEMOGLOBIN 10.4 g/dL (13-16.00); MEAN CORPUSCULAR HGB CONC 32.6 g/dl (32.0-36.0); PLATELET COUNT 360 K/uL (150-450); RED CELL DISTRIBUTION WIDTH 15.3 % (11.5-14.5)
== END 2024-10-05 07:51 | disposition home or self-care (01) ==
LOC: LAB 07:08
DX: C25.0 Malignant neoplasm of head of pancreas (principal)

== ENCOUNTER 2024-10-12 06:45 | Outpatient (CLI) | payer OTHER ==
[2024-10-12 07:25] LABS: HEMATOCRIT 30.8 % (39.0-48.0); HEMOGLOBIN 10.3 g/dL (13-16.00); MEAN CELL VOLUME 84.4 fL (80.0-100.00); MEAN CORPUSCULAR HEMOGLOBIN 28.2 pg (27.00-32.0); MEAN CORPUSCULAR HGB CONC 33.4 g/dl (32.0-36.0); PLATELET COUNT 380 K/uL (150-450); RED BLOOD COUNT 3.65 M/uL (4.00-6.00); RED CELL DISTRIBUTION WIDTH 15.7 % (11.5-14.5)
== END 2024-10-12 06:48 | disposition home or self-care (01) ==
LOC: LAB 06:45
DX: C25.0 Malignant neoplasm of head of pancreas (principal)

== ENCOUNTER 2024-10-19 07:12 | Outpatient (CLI) | payer OTHER ==
[2024-10-19 07:45] LABS: HEMATOCRIT 30.1 % (39.0-48.0); HEMOGLOBIN 9.9 g/dL (13-16.00); MEAN CORPUSCULAR HEMOGLOBIN 28.7 pg (27.00-32.0); PLATELET COUNT 211 K/uL (150-450); RED BLOOD COUNT 3.46 M/uL (4.00-6.00); RED CELL DISTRIBUTION WIDTH 15.8 % (11.5-14.5)
[2024-10-19 08:11] LABS: ALBUMIN 2.8 gm/dL (3.4-5.0); BILIRUBIN TOTAL 0.51 mg/dL (0.3-1.2); CALCIUM 8.9 mg/dL (8.5-10.1); CREATININE SERUM 0.63 mg/dL (0.70-1.30); GFR 124.15; GLOBULINA 3.9 G/DL (2.4-3.5); POTASSIUM 4.8 mEq/L (3.5-5.1); TOTAL PROTEIN 6.7 gm/dL (6.4-8.2)
== END 2024-10-19 07:19 | disposition home or self-care (01) ==
LOC: LAB 07:12
PROVIDERS: ATTEND Internal Medicine Hematology & Oncology
DX: C25.0 Malignant neoplasm of head of pancreas (principal)

== ENCOUNTER → 2024-10-29 08:56 | Outpatient (CLI) | payer OTHER ==
[2024-10-29 09:54] LABS: HEMATOCRIT 29.4 % (39.0-48.0); MEAN CELL VOLUME 86.7 fL (80.0-100.00); MEAN CORPUSCULAR HGB CONC 32.7 g/dl (32.0-36.0); RED BLOOD COUNT 3.39 M/uL (4.00-6.00); RED CELL DISTRIBUTION WIDTH 16.5 % (11.5-14.5)
[2024-10-29 10:07] LABS: INR 1.05; PARTIAL THROMBOPLASTIN TIME 29.9 SECONDS (22.0-34.0); PROTHROMBIN TIME 11.4 SECONDS (9.0-11.5)
[2024-10-29 10:37] LABS: HEMOGLOBIN 9.6 g/dL (13-16.00); MEAN CORPUSCULAR HEMOGLOBIN 28.3 pg (27.00-32.0)
[2024-10-29 10:38] LABS: PLATELET COUNT 635 K/uL (150-450)
== END | disposition home or self-care (01) ==
LOC: LAB 08:56
PROVIDERS: ATTEND Urology
DX: C25.0 Malignant neoplasm of head of pancreas (principal); D65 Disseminated intravascular coagulation [defibrination syndrome]; D64.9 Anemia, unspecified

== ENCOUNTER → 2024-11-01 | Outpatient (CLI) | payer OTHER | END | disposition home or self-care (01) | LOC: TOM 09:02 | DX: J90 Pleural effusion, not elsewhere classified (principal) | CPT/HCPCS: 71275; Q9965 ==

== ENCOUNTER 2024-11-09 07:11 | Outpatient (CLI) | payer OTHER ==
[2024-11-09 07:52] LABS: MEAN CELL VOLUME 86.4 fL (80.0-100.00); MEAN CORPUSCULAR HGB CONC 33.2 g/dl (32.0-36.0); PLATELET COUNT 493 K/uL (150-450); RED BLOOD COUNT 3.71 M/uL (4.00-6.00); RED CELL DISTRIBUTION WIDTH 17.6 % (11.5-14.5)
[2024-11-09 08:48] LABS: HEMOGLOBIN 10.6 g/dL (13-16.00); MEAN CORPUSCULAR HEMOGLOBIN 28.5 pg (27.00-32.0)
[2024-11-09 09:09] LABS: ALBUMIN 3.2 gm/dL (3.4-5.0); BILIRUBIN TOTAL 0.26 mg/dL (0.3-1.2); CALCIUM 9.2 mg/dL (8.5-10.1); CREATININE SERUM 0.83 mg/dL (0.70-1.30); GFR 90.32; GLOBULINA 3.6 G/DL (2.4-3.5); POTASSIUM 4.2 mEq/L (3.5-5.1); TOTAL PROTEIN 6.8 gm/dL (6.4-8.2)
== END 2024-11-09 13:28 | disposition home or self-care (01) ==
LOC: LAB 07:11
DX: C25.0 Malignant neoplasm of head of pancreas (principal)

== ENCOUNTER 2024-12-07 06:48 | Outpatient (CLI) | payer OTHER ==
[2024-12-07 07:34] LABS: HEMATOCRIT 30.3 % (39.0-48.0); HEMOGLOBIN 10.1 g/dL (13-16.00); MEAN CELL VOLUME 90.4 fL (80.0-100.00); MEAN CORPUSCULAR HEMOGLOBIN 30.1 pg (27.00-32.0); MEAN CORPUSCULAR HGB CONC 33.3 g/dl (32.0-36.0); PLATELET COUNT 336 K/uL (150-450); RED BLOOD COUNT 3.35 M/uL (4.00-6.00)
[2024-12-07 08:28] LABS: ALBUMIN 2.8 gm/dL (3.4-5.0); BILIRUBIN TOTAL 0.23 mg/dL (0.3-1.2); CALCIUM 8.7 mg/dL (8.5-10.1); CREATININE SERUM 0.62 mg/dL (0.70-1.30); GFR 126.46; GLOBULINA 3.7 G/DL (2.4-3.5); POTASSIUM 4.79 mEq/L (3.5-5.1); TOTAL PROTEIN 6.5 gm/dL (6.4-8.2)
== END 2024-12-07 06:51 | disposition home or self-care (01) ==
LOC: LAB 06:48
DX: C25.0 Malignant neoplasm of head of pancreas (principal)

== ENCOUNTER 2024-12-11 09:53 | Outpatient (CLI) | payer OTHER | END 2024-12-11 09:57 | disposition home or self-care (01) | LOC: RAD 09:53 | DX: C25.0 Malignant neoplasm of head of pancreas (principal); J91.0 Malignant pleural effusion ==